=== PATIENT | male | born 1985 | race Caucasian/White ===

== ENCOUNTER 2020-11-26 05:01 | Emergency (ER) | payer BC ==
[~2020-11-26] VITALS: Ht 180.3 cm; Wt 97.3 kg
[2020-11-26 05:03] VITALS: TEMP 98.5
[2020-11-26 08:18] VITALS: BP 135/92; PULSE 72
== END 2020-11-26 09:10 | disposition home or self-care (01) ==
LOC: COL.ER 05:01
DX: U07.1 COVID-19 (principal); M54.5 Low back pain; F17.210 Nicotine dependence, cigarettes, uncomplicated; Z88.0 Allergy status to penicillin
CPT/HCPCS: J1100; J1170; J1885; J2360

== ENCOUNTER → 2022-07-26 | Outpatient (CLI) | payer BC | LOC: COL.RAD 13:47 | DX: I28.1 Aneurysm of pulmonary artery (principal) | CPT/HCPCS: Q9967 ==